=== PATIENT | male | born 1970 | race Caucasian/White ===

== ENCOUNTER → 2016-06-15 | Outpatient (CLI) | payer BC ==
[~2016-06-15] VITALS: Ht 180.3 cm; Wt 163.7 kg
[~2016-06-15] MED LIST: ACT30 PO; ATOR-54 PO; GLIM4TAB PO; KETO2CRE14 TOP; LISI-725 PO; METH1CHW PO; OMEG10007 PO; PRLSR20 PO; SITA50TA9 PO
[2016-06-15 15:57] VITALS: BP 114/75; PULSE 88; Ht 180.3 cm; Wt 163.7 kg
== END | disposition home or self-care (01) ==
LOC: C.NEUR 14:16
PROVIDERS: ATTEND Internal Medicine Pulmonary Disease
DX: G47.33 Obstructive sleep apnea (adult) (pediatric) (principal); E66.01 Morbid (severe) obesity due to excess calories; R09.02 Hypoxemia; G47.26 Circadian rhythm sleep disorder, shift work type

== ENCOUNTER → 2016-09-21 | Outpatient (CLI) | payer BC ==
[2016-09-21 12:41] LABS: ALT/SGPT 68 U/L (12-78); BLOOD UREA NITROGEN 15 mg/dl (7-18); BUN/CREATININE RATIO 16.7 (10-20); CALCIUM 9.6 mg/dl (8.5-10.1); CARBON DIOXIDE 24 mmol/L (21-32); CHLORIDE 102 mmol/L (98-107); CHOLESTEROL 161 mg/dl (0-200); GLUCOSE 296 mg/dl (70-99); POTASSIUM 4.4 mmol/L (3.5-5.1); SODIUM 137 mmol/L (136-145); TRIGLYCERIDES 286 mg/dl (0-150); VERY LOW DENSITY LIPOPROT CALC 57 mg/dl
[2016-09-21 12:51] LABS: ALB/GLOB RATIO 1.1 (0.9-2); ALKALINE PHOSPHATASE 70 U/L (45-117); AST/SGOT 21 U/L (15-37); CHOLESTEROL/HDL RATIO 5.6; HDL CHOLESTEROL 29 mg/dl; LDL CHOLESTEROL CALCULATED 75 mg/dl; THYROID STIMULATING HORMONE 0.987 uIu/ml (0.300-4.500)
[2016-09-21 13:12] LABS: ESTIMATED AVERAGE GLUCOSE 171 mg/dl; HA1C FLAG Normal (Normal)
== END | disposition home or self-care (01) ==
LOC: C.LABPVFM 09:43
PROVIDERS: ATTEND Neuromusculoskeletal Medicine & OMM
DX: E11.49 Type 2 diabetes mellitus with other diabetic neurological complication (principal); E11.65 Type 2 diabetes mellitus with hyperglycemia; E66.01 Morbid (severe) obesity due to excess calories; R30.0 Dysuria; Z12.5 Encounter for screening for malignant neoplasm of prostate; N53.9 Unspecified male sexual dysfunction

== ENCOUNTER → 2016-12-14 | Outpatient (CLI) | payer BC ==
[~2016-12-14] VITALS: Ht 180.3 cm; Wt 165.0 kg
[2016-12-14 12:38] VITALS: BP 128/79; PULSE 81; Ht 180.3 cm; Wt 165.0 kg
== END | disposition home or self-care (01) ==
LOC: C.NEUR 12:21
PROVIDERS: ATTEND Internal Medicine Pulmonary Disease
DX: G47.33 Obstructive sleep apnea (adult) (pediatric) (principal); G47.26 Circadian rhythm sleep disorder, shift work type

== ENCOUNTER → 2017-03-07 | Outpatient (CLI) | payer BC ==
[2017-03-07 17:13] LABS: ALT/SGPT 56 U/L (12-78); AST/SGOT 21 U/L (15-37); BLOOD UREA NITROGEN 14 mg/dl (7-18); BUN/CREATININE RATIO 15.5 (10-20); CARBON DIOXIDE 24 mmol/L (21-32); CHLORIDE 104 mmol/L (98-107); CREATININE 0.89 mg/dl (0.60-1.40); ESTIMATED AVERAGE GLUCOSE 197 mg/dl; GLUCOSE 217 mg/dl (70-99); HA1C FLAG Normal (Normal); SODIUM 137 mmol/L (136-145)
[2017-03-07 17:16] LABS: ALB/GLOB RATIO 1.1 (0.9-2); ALKALINE PHOSPHATASE 60 U/L (45-117)
[2017-03-07 17:23] LABS: RATIO 4.6 mcg/mg (0-30.0)
== END | disposition home or self-care (01) ==
LOC: C.LAB1850 15:03
PROVIDERS: ATTEND Nurse Practitioner Adult Health
DX: I10 Essential (primary) hypertension (principal); E11.49 Type 2 diabetes mellitus with other diabetic neurological complication; E11.65 Type 2 diabetes mellitus with hyperglycemia

== ENCOUNTER → 2017-07-01 | Outpatient (CLI) | payer BC ==
[2017-07-02 07:28] LABS: HEMOGLOBIN A1C 8.3 % (4.5-5.6)
== END | disposition home or self-care (01) ==
LOC: C.LABPVFM 14:14
PROVIDERS: ATTEND Nurse Practitioner Adult Health
DX: E11.49 Type 2 diabetes mellitus with other diabetic neurological complication (principal)